=== PATIENT | male | born 1990 | race Caucasian/White ===

== ENCOUNTER 2020-02-22 11:25 | Emergency (ER) | payer SELFPAY ==
[~2020-02-22] VITALS: Ht 180.3 cm; Wt 93.0 kg
--- OUTSIDE RECORDS SUMMARY | ~2020-02-22 | XMS | Encounter Summary ---
Demographics + + + | Address | [address] | | | [place] [address] | + + + | Home Phone | | + + + | Preferred Language | Unknown | + + + | Marital Status | Single | + + + | Restorationism Affiliation | Unknown | + + + | Race | Unknown | + + + | Ethnic Group | Unknown | + + + Author + + + | Author | [facility] | | | and [place] | + + + | Organization | [facility] | | | and [place] | + + + | Address | Unknown | + + + | Phone | Unavailable | + + + Support + + + + + | Name | Relationship | Address | Phone | + + + + + | Darryl Lugo | ECON | [address] | | | | | [place], [place] | | | | | [address] | | + + + + + | Earnestine Lugo | ECON | [address] | | | | | [place], [place] | | | | | [address] | | + + + + + Care Team Providers + +------+ + | Care Installation And Repair Technician Name | Role | Phone | + +------+ + | Cory Lagunas MD | PCP | | + +------+ + Reason for Visit + + + | Reason | Comments | + + + | Medication Refill | | + + + Encounter Details +--------+--------+ + + + | Date | Type | Department | Care Team | Description | +--------+--------+ + + + | 08/03/ | Refill | [facility] | Cory Lagunas, | Medication Refill | | 2011 | | [facility] [place] | [address] | | | | | [address] | [place] | | | | | [place] | [address] | | | | | [address] | | | | | | [phone] | | | +--------+--------+ + + + Social History + +-------+ +--------+------+ | Tobacco Use | Types | Packs/Day | Years | Date | | | | | Used | | + +-------+ +--------+------+ | Never Assessed | | | | | + +-------+ +--------+------+ + + + | Sex Assigned at | Date Recorded | | | | + + + | Not on file | | + + + documented as of this encounter Miscellaneous Notes Telephone Encounter - Jennie Hernandez RN - 08/03/2012 5:14 PM PSTLast seen 03/15/2012 Needs to be seen before refill documented in this encounter Plan of Treatment Not on filedocumented as of this encounter Visit Diagnoses Not on filedocumented in this encounter"
--- OUTSIDE RECORDS SUMMARY | ~2020-02-22 | XMS | Encounter Summary ---
Demographics + + + | Address | [address] | | | [place] [address] | + + + | Home Phone | | + + + | Preferred Language | Unknown | + + + | Marital Status | Single | + + + | Yarsanism Affiliation | Unknown | + + + | Race | Unknown | + + + | Ethnic Group | Unknown | + + + Author + + + | Author | [facility] | | | and [place] | + + + | Organization | [facility] | | | and [place] | + + + | Address | Unknown | + + + | Phone | Unavailable | + + + Support + + + + + | Name | Relationship | Address | Phone | + + + + + | Darryl Lugo | ECON | [address] | | | | | [place], [place] | | | | | [address] | | + + + + + | Earnestine Lugo | ECON | [address] | | | | | [place], [place] | | | | | [address] | | + + + + + Care Team Providers + +------+ + | Care Building Mechanic Name | Role | Phone | + +------+ + | Cory Lagunas MD | PCP | | + +------+ + Encounter Details +--------+---------+ + + + | Date | Type | Department | Care Team | Description | +--------+---------+ + + + | 04/05/ | Office | [facility] | Karen Pichardo PA | Ankle injury | | 2012 | Visit | [facility] [place] | [address] [facility] | (Primary Dx) | | | | [address] | [address] [place], [place] | | | | | [place] | [address] | | | | | [address] | | | | | | [phone] | | | +--------+---------+ + + + Social History + + + +--------+------+ | Tobacco Use | Types | Packs/Day | Years | Date | | | | | Used | | + + + +--------+------+ | Current Every Day | Cigarettes | | | | | Smoker | | | | | + + + +--------+------+ + + | Comments: declined | + + + + +---------+ + | Alcohol Use | Drinks/Week | oz/Week | Comments | + + +---------+ + | Yes | 8 Standard drinks | 6.7 | | | | or equivalent | | | + + +---------+ + + + + | Sex Assigned at | Date Recorded | | | | + + + | Not on file | | + + + documented as of this encounter Last Filed Vital Signs + + + + + | Vital Sign | Reading | Time Taken | Comments | + + + + + | Blood Pressure | 110/62 | 04/05/2013 2:41 PM | | | | | PDT | | + + + + + | Pulse | 55 | 04/05/2013 2:41 PM | | | | | PDT | | + + + + + | Temperature | 37.1 C (98.8 F) | 04/05/2013 2:41 PM | | | | | PDT | | + + + + + | Respiratory Rate | 16 | 04/05/2013 2:41 PM | | | | | PDT | | + + + + + | Oxygen Saturation | 98% | 04/05/2013 2:41 PM | | | | | PDT | | + + + + + | Inhaled Oxygen | - | - | | | Concentration | | | | + + + + + | Weight | 93.9 kg (207 lb) | 04/05/2013 2:41 PM | | | | | PDT | | + + + + + | Height | - | - | | + + + + + | Body Mass Index | 29.7 | 12/12/2012 9:56 AM | | | | | PDT | | + + + + + documented in this encounter Progress Notes Karen Pichardo - 04/08/2013 9:47 AM PDT Subjective: Patient ID: Samuel Lugo is a 23 y.o. male. HPI: This 23 yr old male presents today for a new acute injury to his right ankle. He state s he has sprained this ankle several times, but this time there is a lot more swelling, brui sing, and it is very painful. He denies any previous fractures to the right ankle or fibula . He denies any loss of sensation or strength in his right ankle. He is able to put pressur e on it and walk on but it is painful. He has been wearing an debbie bandage wrap to help with the swelling and he did ice it initially. He has not been keeping foot elevated or staying off of it. Patient's medications, allergies, past medical, surgical, social and family histories were reviewed and updated as appropriate. Review of Systems: Positive systems and pertinent negatives reviewed in HPI; all other syst ems negative. Objective: Physical Exam Musculoskeletal: Right ankle: He exhibits decreased range of motion, swelling and ecchymosis. He exhibi ts no deformity, no laceration and normal pulse. tenderness. AITFL and proximal fibula tende rness found. No lateral malleolus, no medial malleolus, no CF ligament, no posterior TFL and no head of 5th metatarsal tenderness found. DP pulse 2+/5, PT pulse 2+/5 Assessment: Right ankle injury Plan: Xray ordered which shows no fracture of ankle or tibia. Referral for physical therapy put in today. Patient declined use of crutches. Instructed to keep foot up as much as possible and to keep wrapped with debbie bandage. Return to clinic if pain worsens or does not improve. I offered referral to physical therapy but patient declined today. Patient will use Tylenol for pain. documented in this encounte r Plan of Treatment Not on filedocumented as of this encounter Results XR Ankle Right 3 + Vw (04/05/2013 4:50 PM PDT) + + | Specimen | + + | | + + + + + | Narrative | Performed At | + + + | [facility] | [place] | | Department [address] [facility] | [facility] | | [ rep [address]] [ rep [facility] | | st zip] Signed | - IMAGING | | | | | Patient Name: BRITTNEYSAMUEL MILLS Physician: | | | OLIVER. : 1990 Age: 23 Sex: M Unit #: [id number] | | | Exam Date: 04/05/13 [place] [facility] [place] | | Report #: [id number] Page: | | | %(RAD)RES..mtdd.print.filter("pg") of %(RAD) | | | RES..mtdd.print.filter("tpg") | | | | | | Accession Number: [id number] | | | [id number] RIGHT ANKLE X-RAY CLINICAL HISTORY: | | | INJURY. COMPARISON: None. FINDINGS: Three | | | views of the right ankle were obtained. There is normal bone | | | mineralization. No acute osseous abnormalities are visualized. There | | | are no significant degenerative changes. Small bone islands are | | | noted in the distal tibial shaft and in the posterior calcaneus. There | | | is significant soft tissue swelling over the distal fibula. | | | IMPRESSION: NO EVIDENCE FOR ACUTE FRACTURE OR DISLOCATION. | | | SIGNIFICANT SOFT TISSUE SWELLING OVER DISTAL FIBULA. | | | Dictated Date/Time: 04/05/2013 16:50 Transcribed Date/Time: | | | 04/05/2013 18:28 Nuclear Physician: | | | <<Signature on File>> | | | Ford | | | MD Matty04/06/13 0117 <Electronically signed by Ford Starr MD> | | | Ford Starr MD 04/05/13 3039 Nuclear Physician: Jass | | | [id number]/16/13 1828 Karen Pichardo | | + + + + + + + + | Performing | Address | City/State/Zipcode | Phone Number | | Organization | | | | + + + + + | [facility] | [address] | [place] | [phone] | | [facility] | | [address] | | | - IMAGING | | | | + + + + + documented in this encounter Visit Diagnoses + + | Diagnosis | + + | Ankle injury - Primary Injury, other and unspecified, knee, leg, ankle, and foot | + + documented in this encounter
--- OUTSIDE RECORDS SUMMARY | ~2020-02-22 | XMS | Encounter Summary ---
Demographics + + + | Address | [address] | | | [place] [address] | + + + | Home Phone | | + + + | Preferred Language | Unknown | + + + | Marital Status | Single | + + + | Uatsdin Affiliation | Unknown | + + + | Race | Unknown | + + + | Ethnic Group | Unknown | + + + Author + + + | Author | [facility] | | | and [place] | + + + | Organization | [facility] | | | and [place] | + + + | Address | Unknown | + + + | Phone | Unavailable | + + + Support + + + + + | Name | Relationship | Address | Phone | + + + + + | Darryl Isaac | ECON | [address] | | | | | [place], [place] | | | | | [address] | | + + + + + | Earnestine Isaac | ECON | [address] | | | | | [place], [place] | | | | | [address] | | + + + + + Care Team Providers + +------+ + | Care Quality Assurance Monitor Final Name | Role | Phone | + +------+ + | Cory Lagunas MD | PCP | | + +------+ + Encounter Details +--------+ + + + + | Date | Type | Department | Care Team | Description | +--------+ + + + + | 04/05/ | Hospital | [facility] | Karen Pichardo PA | Ankle injury | | 2012 | Encounter | MED CTR XRAY [address] | [address] [place] | | | | | [place] | [address] [place], [place] | | | | | [place] [address] | [address] | | | | | [phone] | | | +--------+ + + + + Social History + + [...] + + documented as of this encounter Plan of Treatment Not on filedocumented as of this encounter Procedures + +--------+ + + + | Procedure Name | Priori | Date/Time | Associated Diagnosis | Comments | | | ty | | | | + +--------+ + + + | XR ANKLE RIGHT 3 + | Routin | 04/05/2013 | Ankle injury | Results for this | | VW | e | 4:50 PM | | procedure are in the | | | | PDT | | results section. | + +--------+ + + + documented in this encounter Results XR Ankle Right 3 + Vw (04/05/2013 4:50 PM PDT) + + | Specimen | + + | | + + + + + | Narrative | Performed At | + + + | [facility] | [place] | | Department [address] [place] | [facility] | | [ rep [address]] [ rep [facility] | | st zip] Signed | - IMAGING | | | | | Patient Name: SAMUEL ISAAC Physician: | | | OLIVER. : 1990 Age: 23 Sex: M Unit #: [id number] | | | Exam Date: 04/05/13 [place] [facility] [place] | | Report #: [id number] Page: | | | %(RAD)RES..mtdd.print.filter("pg") of %(RAD) | | | RES..mtdd.print.filter("tpg") | | | | | | Accession Number: [id number] | | | [id number] RIGHT ANKLE X-RAY CLINICAL HISTORY: | | [...] Transcribed Date/Time: | | | 04/05/2013 18:28 Podiatric Medicine Professor: | | | <<Signature on File>> | | | Ford | | | MD Matty04/06/13 0117 <Electronically signed by Ford Starr MD> | | | Ford Starr MD 04/05/13 4050 Podiatric Medicine Professor: Jass | | | Efalpfldiwhhg04/16/13 1828 Karen Pichardo | | + + + + + + + + | Performing | Address | City/State/Zipcode | Phone Number | | Organization | | | | + + + + + | [facility] | [address] | [place] | [phone] | | [facility] | | [address] | | | - IMAGING | | | | + + + + + documented in this encounter Visit Diagnoses + + | Diagnosis | + + | Ankle injury Injury, other and unspecified, knee, leg, ankle, and foot | + + documented in this encounter
--- OUTSIDE RECORDS SUMMARY | ~2020-02-22 | XMS | Encounter Summary ---
Demographics + + + | Address | [address] | | | [place] [address] | + + + | Home Phone | | + + + | Preferred Language | Unknown | + + + | Marital Status | Single | + + + | Hoahaoism Affiliation | Unknown | + + + | Race | Unknown | + + + | Ethnic Group | Unknown | + + + Author + + + | Author | [facility] | | | and [place] | + + + | Organization | [facility] | | | and [place] | + + + | Address | Unknown | + + + | Phone | Unavailable | + + + Support + + + + + | Name | Relationship | Address | Phone | + + + + + | Darryl Lugo | ECON | [address] | | | | | [place], [place] | | | | | [address] | | + + + + + | Earnestine Lugo | ECON | [address] | | | | | [place], [place] | | | | | [address] | | + + + + + Care Team Providers + +------+ + | Care Electrical Assistant Name | Role | Phone | + +------+ + | Cory Lagunas MD | PCP | | + +------+ + Reason for Visit +--------+--------+ + | Reason | Onset | Comments | | | Date | | +--------+--------+ + | Other | 01/11/ | | | | 2012 | | +--------+--------+ + Encounter Details +--------+ + + + + | Date | Type | Department | Care Team | Description | +--------+ + + + + | 01/11/ | Telephone | [facility] | Sam Woods, | Other | | 2012 | | SURGERY [address] | [address], | | | | | [place], [place] | [place] [address] [place], | | | | | [address] | [place] [address] | | | | | [phone] | [phone] | | | | | | | | +--------+ + + + [...] this encounter Miscellaneous Notes Telephone Encounter - Linda Ruvalcaba RN - 01/11/2013 10:48 AM PDTWork release sent and pat ient notified. elephone Encounter - Laura Woods - 01/11/2013 8:59 AM PDTNeeding a release to work. Patient is already working but they need it in writing that he has been released to return to work. H e states that they should accept a note signed by a nurse. Please call him @ [phone]. He would like to know if we can do this before Dr. Woods gets back or if he will need to w ait. If we can do this please fax the note to his work Attn: Henrietta, .Electr onically signed by Laura Woods at 01/11/2013 9:08 AM PDTdocumented in this encounter Plan of Treatment Not on filedocumented as of this encounter Visit Diagnoses Not on filedocumented in this encounter"
--- OUTSIDE RECORDS SUMMARY | ~2020-02-22 | XMS | Encounter Summary ---
Demographics + + + | Address | [address] | | | [place] [address] | + + + | Home Phone | | + + + | Preferred Language | Unknown | + + + | Marital Status | Single | + + + | Yazidism Affiliation | Unknown | + + + | Race | Unknown | + + + | Ethnic Group | Unknown | + + + Author + + + | Author | [facility] | | | and [place] | + + + | Organization | [facility] | | | and [place] | + + + | Address | Unknown | + + + | Phone | Unavailable | + + + Support + + + + + | Name | Relationship | Address | Phone | + + + + + | Darryl Isaac | ECON | [address] | | | | | [place], [place] | | | | | [address] | | + + + + + | Earnestine Isaac | ECON | [address] | | | | | [place], [place] | | | | | [address] | | + + + + + Care Team Providers + +------+ + | Care Customer Business Manager Name | Role | Phone | + +------+ + | Cory Lagunas MD | PCP | | + +------+ + Encounter Details +--------+ + + + + | Date | Type | Department | Care Team | Description | +--------+ + + + + | 12/18/ | Hospital | [facility] | Sam Woods, | | | 2012 | Encounter | MED CTR [facility] INTRA OP | MD [address], | | | | | [address] | [address] [address] [place], | | | | | [place], [place] | [place] [address] | | | | | [address] | [phone] | | | | | [phone] | | | +--------+ + + + [...] + + documented as of this encounter Medications at Time of Discharge + + + +---------+ + + | Medication | Sig | Dispensed | Refills | Start | End Date | | | | | | Date | | + + + +---------+ + + | albuterol (PROAIR | Inhale 2 puffs into | 1 | 2 | 06/14/20 | | | HFA) 90 mcg/puff | the lungs every 4 | Inhaler | | 12 | 3 | | inhaler | hours as needed | | | | | | | (cough). | | | | | + + + +---------+ + + | melatonin ([facility] | 5 tablets by mouth | | 0 | 09/15/19 | | | MELATONIN) 3 mg TABS | at bedtime as needed | | | 12 | 3 | + + + +---------+ + + | minocycline | Take 100 mg by mouth | | 0 | 05/04/20 | | | (DYNACIN) 100 MG | 2 times daily. | | | 12 | 3 | | tablet | | | | | | + + + +---------+ + + documented as of this encounter Miscellaneous Notes Op Note - Sam Woods MD - 12/18/2012 11:43 [place] [address] Patient Name: SAMUEL ISAAC Provider: Sam Woods MD Unit #: [id number] Location: [facility] #: [id number] : 1990 DATE: 12/18/2012 OPERATIVE REPORT PREOPERATIVE DIAGNOSIS Umbilical hernia, symptomatic. POSTOPERATIVE DIAGNOSIS UMBILICAL HERNIA, SYMPTOMATIC. PROCEDURE PERFORMED: Umbilical hernia repair without mesh. SURGEON: Sam Woods MD. ANESTHESIA: General endotracheal by Edwar Mckeon MD. ESTIMATED BLOOD LOSS: 0. COUNTS: Sponge and needle counts were correct at the end of the case. PROCEDURE: The patient was prepped and draped in standard sterile fashion in the supine po sition with exposure of the abdomen in the field. After adequate general endotracheal anest hesia had been achieved , the patient received 2 g of IV Ancef, had SCDs placed, and a time -out was taken to confirm site and procedure. A periumbilical local anesthetic was infused. A semicircumferential periumbilical incision was made with a 15 blade. Dissection was morales ied out through the subcutaneous tissues. The umbilicus was unattached from the underlying fascia and this allowed for inspection of an 8 mm hernia defect. The contents were dunked b ack into the abdominal cavity. I freshened up the edges of the hernia and then used 2-0 Pro shereen interrupted horizontal mattress sutures to close the defect primarily. We then reattac hed the umbilicus with a 3-0 Vicryl stitch to the fascia underneath and closed the skin with a 4 -0 Vicryl running subcuticular stitch. Steri-Strips were applied, a 2 x 2 and a Tegade rm, and the patient was woken up and brought to the recovery room, having tolerated the pro cedure well in stable condition. DICTATED BY: Sam Woods MD General Surgery JOB #: [id number] EXT JOB #:[id number] cc: Cory Lagunas MD <<Signature on File>> Sam Woods MD 12/19/12 0736 < documented in this encounter Plan of Treatment Not on filedocumented as of this encounter Visit Diagnoses Not on filedocumented in this encounter"
--- OUTSIDE RECORDS SUMMARY | ~2020-02-22 | XMS | Encounter Summary ---
Demographics + + + | Address | [address] | | | [place] [address] | + + + | Home Phone | | + + + | Preferred Language | Unknown | + + + | Marital Status | Single | + + + | Rastafari Affiliation | Unknown | + + + | Race | Unknown | + + + | Ethnic Group | Unknown | + + + Author + + + | Author | [facility] | | | and [place] | + + + | Organization | [facility] | | | and [place] | + + + | Address | Unknown | + + + | Phone | Unavailable | + + + Support + + + + + | Name | Relationship | Address | Phone | + + + + + | Darryl Lugo | ECON | [address] | | | | | [place], [place] | | | | | [address] | | + + + + + | Earnestnie Lugo | ECON | [address] | | | | | [place], [place] | | | | | [address] | | + + + + + Care Team Providers + +------+ + | Care Esthetic Dermatologist Name | Role | Phone | + +------+ + | Cory Lagunas MD | PCP | | + +------+ + Reason for Visit + +--------+ + | Reason | Onset | Comments | | | Date | | + +--------+ + | Medication Refill | 06/14/ | | | | 2011 | | + +--------+ + Encounter Details +--------+--------+ + + + | Date | Type | Department | Care Team | Description | +--------+--------+ + + + | 06/14/ | Refill | [facility] | Cory Lagunas, | Medication Refill | | 2011 | | [facility] [place] | [address] | | | | | [address] | [place] | | | | | [place] | [address] | | | | | [address] | | | | | | [phone] | | | +--------+--------+ + + + [...] this encounter Miscellaneous Notes Telephone Encounter - Eleni Bunch RN - 06/14/2012 5:11 PM PDTRefilled electronica lly. elephone [facility] - Cory Lagunas MD - 06/14/2012 4:02 PM PDTOk to refill one. If he needs more then he needs to be seen. ele phone Encounter - Eleni Bunch RN - 06/14/2012 3:54 PM PDTReceived refill request f rom [facility] [place] for Proair HFA 2 puffs every 4 hours as needed for cough #9 gm Last filled 06/01/[address] Lito Montes De Oca in [place] Not previously filled by Dr Lagnuas. Is it ok to refill this medication? documented in thi s encounter Plan of Treatment Not on filedocumented as of this encounter Visit Diagnoses Not on filedocumented in this encounter"
--- OUTSIDE RECORDS SUMMARY | ~2020-02-22 | XMS | Encounter Summary ---
Demographics + + + | Address | [address] | | | [place] [address] | + + + | Home Phone | | + + + | Preferred Language | Unknown | + + + | Marital Status | Single | + + + | Baptist Affiliation | Unknown | + + + | Race | Unknown | + + + | Ethnic Group | Unknown | + + + Author + + + | Author | [facility] | | | and [place] | + + + | Organization | [facility] | | | and [place] | + + + | Address | Unknown | + + + | Phone | Unavailable | + + + Support + + + + + | Name | Relationship | Address | Phone | + + + + + | Darryl Lugo | ECON | [address] | | | | | [place], [place] | | | | | [address] | | + + + + + | Earnestine Lugo | ECON | [address] | | | | | [place], [place] | | | | | [address] | | + + + + + Care Team Providers + +------+ + | Care Healthcare Project Manager Name | Role | Phone | + +------+ + | Cory Lagunas MD | PCP | | + +------+ + Encounter Details +--------+ + + + + | Date | Type | Department | Care Team | Description | +--------+ + + + + | 05/03/ | Abstract | [place] [facility] | [facility] | | | 2011 | | Conversion Location | SR | | | | | [address] [facility] | | | | | | [place], [place] | | | | | | [address] | | | | | | [phone] | | | +--------+ + + + + Social History + +-------+ [...] + + + | Blood Pressure | 118/62 | 03/15/2012 12:00 AM | | | | | PDT | | + + + + + | Pulse | - | - | | + + + + + | Temperature | - | - | | + + + + + | Respiratory Rate | - | - | | + + + + + | Oxygen Saturation | - | - | | + + + + + | Inhaled Oxygen | - | - | | | Concentration | | | | + + + + + | Weight | 98.9 kg (218 lb) | 03/15/2012 12:00 AM | | | | | PDT | | + + + + + | Height | 177.8 cm (5' 10") | 06/28/2011 12:00 AM | | | | | PST | | + + + + + | Body Mass Index | 31.28 | 06/28/2011 12:00 AM | | | | | PST | | + + + + + documented in this encounter Plan of Treatment Not on filedocumented as of this encounter Visit Diagnoses Not on filedocumented in this encounter
--- OUTSIDE RECORDS SUMMARY | ~2020-02-22 | XMS | Encounter Summary ---
Demographics + + + | Address | [address] | | | [place] [address] | + + + | Home Phone | | + + + | Preferred Language | Unknown | + + + | Marital Status | Single | + + + | Jew Affiliation | Unknown | + + + | Race | Unknown | + + + | Ethnic Group | Unknown | + + + Author + + + | Author | [facility] | | | and [place] | + + + | Organization | [facility] | | | and [place] | + + + | Address | Unknown | + + + | Phone | Unavailable | + + + Support + + + + + | Name | Relationship | Address | Phone | + + + + + | Darryl Lugo | ECON | [address] | | | | | [place], [place] | | | | | [address] | | + + + + + | Earnestine Lugo | ECON | [address] | | | | | [place], [place] | | | | | [address] | | + + + + + Care Team Providers + +------+ + | Care Flame Channeler Name | Role | Phone | + +------+ + | Cory Lagunas MD | PCP | | + +------+ + Reason for Visit +--------+ + | Reason | Comments | +--------+ + | Biopsy | excision | +--------+ + Encounter Details +--------+---------+ + + + | Date | Type | Department | Care Team | Description | +--------+---------+ + + + | 10/14/ | Office | [facility] | Cory Lagunas, | Lipoma of torso | | 2016 | Visit | [facility]IC[facility] [place] | [address] | (Primary Dx) | | | | [address] | [place] | | | | | [place] | [address] | | | | | [address] | | | | | | [phone] | | | +--------+---------+ + + + Social History + + + +--------+ + | Tobacco Use | Types | Packs/Day | Years | Date | | | | | Used | | + + + +--------+ + | Former Smoker | Cigarettes | | | Quit: 10/19/2013 | + + + +--------+ + + + | Comments: declined | + + + + +---------+ + | Alcohol Use | Drinks/Week | oz/Week | Comments | + + +---------+ + | Yes | 8 Standard drinks | 8.0 | | | | or equivalent | [...] + + + | Blood Pressure | 120/72 | 10/14/2015 2:13 PM | | | | | PST | | + + + + + | Pulse | 66 | 10/14/2015 2:13 PM | | | | | PST | | + + + + + | Temperature | 36.8 C (98.2 F) | 10/14/2015 2:13 PM | | | | | PST | | + + + + + | Respiratory Rate | 16 | 10/14/2015 2:13 PM | | | | | PST | | + + + + + | Oxygen Saturation | 99% | 10/14/2015 2:13 PM | | | | | PST | | + + + + + | Inhaled Oxygen | - | - | | | Concentration | | | | + + + + + | Weight | 90.3 kg (199 lb) | 10/14/2015 2:13 PM | | | | | PST | | + + + + + | Height | 177.2 cm (5' 9.75") | 10/14/2015 2:13 PM | | | | | PST | | + + + + + | Body Mass Index | 28.76 | 10/14/2015 2:13 PM | | | | | PST | | + + + + + documented in this encounter Progress Notes Cory Lagunas MD - 10/14/2015 2:15 PM PSTExcisional Biopsy Procedure Note Pre-operative Diagnosis: Lipoma v sebaceous cyst Post-operative Diagnosis: lipoma Locations: Mid-thoracic back directly over spine Indications: pain with sitting Anesthesia: Lidocaine 1% with epinephrine with added sodium bicarbonate Procedure Details The risks, benefits, indications, potential complications, and alternatives were explained to the patient and informed consent obtained. The lesion and surrounding area was given a sterile prep using betadyne and draped in the u sual sterile fashion. A scalpel was used to excise an elliptical area of skin approximately 2cm by 1cm. The scar tissue directly below the surface was dissected out of the way. In the deep subcutaneous a 2-3 encapsulated lipoma was located and poped out of the incision with j ust slight pressure.The wound was closed with 3-0 Prolene using simple interrupted stitches but ensuring that the stitch contained deep tissue to close up the deficit. . Antibiotic oin tment and a sterile dressing applied. The specimen was sent for pathologic examination. The patient tolerated the procedure well. EBL: 2-3 cc Findings: classic scarring of the subcutaneous tissue of the back and a classic lipoma Condition: Stable Complications: None Plan: 1. Instructed to keep the wound dry and covered for 24-48 hours and clean thereafter. 2. Warning signs of infection were reviewed. 3. Recommended that the patient use OTC analgesics as needed for pain. 4. Return for suture removal in 10 days. Cory Lagunas MD documented in this en counter Plan of Treatment + + +--------+ + + | Name | Type | Priori | Associated Diagnoses | Order Schedule | | | | ty | | | + + +--------+ + + | Surgical Pathology | Pathology | Routin | Lipoma of torso | Ordered: 10/14/2015 | | Exam | and | e | | | | | Cytology | | | | + + +--------+ + + documented as of this encounter Procedures + +--------+ + + + | Procedure Name | Priori | Date/Time | Associated Diagnosis | Comments | | | ty | | | | + +--------+ + + + | SURGICAL PATHOLOGY | Routin | 10/14/2015 | | Results for this | | EXAM | e | 12:00 AM | | procedure are in the | | | | PST | | results section. | + +--------+ + + + documented in this encounter Results Surgical Pathology Exam (10/14/2015 12:00 AM PST) + + | Specimen | + + | | + + + + + | Narrative | Performed At | + + + | SPECIMEN(S): A LIPOMA ON BACK SPECIMEN SOURCE: A. LIPOMA ON | [facility] | | BACK CLINICAL HISTORY: D17.1 (benign lipomatous neoplasm of skin | [facility] | | and subcutaneous tissue of trunk) FINAL PATHOLOGIC DIAGNOSIS: | | | Lipoma on back: - Benign histologic features consistent with | | | lipoma. JVR:[facility]:C2NR GROSS DESCRIPTION: The specimen is | | | labeled "Jr Lugo". Submitted in formalin are two fragments of | | | adipose tissue, one is smooth, lobulated, delicately encapsulated and | | | oval-shaped measuring 2.8 cm in maximum dimension. The other is a | | | fragment of unremarkable appearing adipose tissue measuring 2 cm in | | | diameter; surmounting it is a 1 x 0.3 cm ellipse of skin. The 2 cm | | | nodule is inked blue. Both specimens are bisected with | | | school admissions representative sections submitted in one cassette. J[facility] | | | MICROSCOPIC EXAMINATION: Histologic sections of all submitted blocks | | | are examined by light microscopy. These findings, together with the | | | gross examination, support the pathologic diagnosis. PERFORMING | | | LABORATORY: Tissue processing and slide preparation were performed by | | | [facility], [address] [place] [address], [address], [place] [address] | | | (Service Parts Driver: August English M.D.; CLIA#: [id number]). | | | Professional interpretation was performed by [facility], | | | [facility], [address] [place] [address] | | | [place] [address] (Service Parts Driver: August English M.D.; CLIA#: | | | [id number]). Diagnostician: August English MD Pathologist | | | Electronically Signed 10/16/2015 | | + + + + +---------+ + + | Performing | Address | City/State/Zipcode | Phone Number | | Organization | | | | + +---------+ + + | [facility] | | | | | [facility] | | | | + +---------+ + + documented in this encounter Visit Diagnoses + + | Diagnosis | + + | Lipoma of torso - Primary | + + documented in this encounter
--- OUTSIDE RECORDS SUMMARY | ~2020-02-22 | XMS | Encounter Summary ---
Demographics + + + | Address | [address] | | | [place] [address] | + + + | Home Phone | | + + + | Preferred Language | Unknown | + + + | Marital Status | Single | + + + | Sikh Affiliation | Unknown | + + + | Race | Unknown | + + + | Ethnic Group | Unknown | + + + Author + + + | Author | [facility] | | | and [place] | + + + | Organization | [facility] | | | and [place] | + + + | Address | Unknown | + + + | Phone | Unavailable | + + + Support + + + + + | Name | Relationship | Address | Phone | + + + + + | Darryl Lugo | ECON | [address] | | | | | [place], [place] | | | | | [address] | | + + + + + | Earnestine Lugo | ECON | [address] | | | | | [place], [place] | | | | | [address] | | + + + + + Care Team Providers + +------+ + | Care Cat Sitter Name | Role | Phone | + +------+ + | Cory Lagunas MD | PCP | | + +------+ + Reason for Referral Surgical (Routine) +--------+ + + + + + | Status | Reason | Specialty | Diagnoses / | Referred By | Referred To | | | | | Procedures | Contact | Contact | +--------+ + + + + + | Closed | Specialty | Surgery / | Diagnoses | Woods, | Woods, | | | Services | General | Umbilical | Sam Rivera MD | Sam Rivera MD | | | Required | Surgery | hernia | [address] | | | | | Procedures | [place]AR, [place] | POPLAR, [place] | | | | | REPAIR | [address] [place] [address] [place] | | | | | UMBILICAL | [place], [place] | [place] | | | | | NANY,<5Y/O,R | [address] | [address] Phone: | | | | | EDUC | Phone: | [phone] | | | | | | [phone] | Fax: | | | | | | Fax: | [phone] | | | | | | [phone] | | +--------+ + + + + + Reason for Visit + + + | Reason | Comments | + + + | New Patient | | + + + Surgical (Routine) +--------+ + + + + + | Status | Reason | Specialty | Diagnoses / | Referred By | Referred To | | | | | Procedures | Contact | Contact | +--------+ + + + + + | Closed | Specialty | Surgery / | Diagnoses | Marino, | Peggy, | | | Services | General | Hernia | REHANA John | Sam Rivera MD | | | Required | Surgery | | [address] | [address] | | [address] | [place] | | | | | | [place], | [address] [place] | | | | | | [place] [address] | [facility] [place] | | | | | | Phone: | [phone] Phone: | | | | | | [phone] | [phone] | | | | | | Fax: | Fax: | | | | | | [phone] | [phone] | +--------+ + + + + + Encounter Details +--------+---------+ + + + | Date | Type | Department | Care Team | Description | +--------+---------+ + + + | 12/12/ | Office | [facility] | Sam Woods, | Umbilical hernia | | 2012 | Visit | SURGERY [address] | [address], | (Primary Dx) | | | | [address] [place], [place] | [place] [address] [place], | | | | | [address] | [place] [address] | | | | | [phone] | [phone] | | | | | | | | +--------+---------+ + + + [...] + + + | Blood Pressure | 112/72 | 12/12/2012 9:56 AM | | | | | PDT | | + + + + + | Pulse | 50 | 12/12/2012 9:56 AM | | | | | PDT | | + + + + + | Temperature | 35.8 C (96.4 F) | 12/12/2012 9:56 AM | | | | | PDT | | + + + + + | Respiratory Rate | 15 | 12/12/2012 9:56 AM | | | | | PDT | | + + + + + | Oxygen Saturation | 99% | 12/12/2012 9:56 AM | | | | | PDT | | + + + + + | Inhaled Oxygen | - | - | | | Concentration | | | | + + + + + | Weight | 101.6 kg (224 lb) | 12/12/2012 9:56 AM | | | | | PDT | | + + + + + | Height | 177.8 cm (5' 10") | 12/12/2012 9:56 AM | | | | | PDT | | + + + + + | Body Mass Index | 32.14 | 12/12/2012 9:56 AM | | | | | PDT | | + + + + + documented in this encounter Progress Notes Sam Woods MD - 12/12/2012 9:53 AM PDTFormatting of this note might be different fr om the original. Subjective: He is a patient of Cory Lagunas MD here today for evaluation of umbilical hernia. HPI This patient was sent to see me for umbilical pain and was thought to be a symptomatic umbi lical hernia. 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 He notes when he bends over that he has discomfort at his Matchbook. He has never noticed a large bulge. He denies chronic constipation, difficulty with urination or chronic cough. Past Medical History He has a past medical history of Attention deficit disorder with hyperactivity; Sleep disor pat; Pneumonia; and Inguinal hernia. Past Surgical History He has past surgical history that includes Tonsillectomy and tonselectomy (1996). Family History: His family history includes Allergies in an unspecified family member; Cancer in an unspeci fied family member; Diabetes in an unspecified family member; Hearing loss in an unspecified family member; Heart disease in an unspecified family member; Mental illness in an unspecif ied family member; and Other (See Comment) in an unspecified family member. Social History: He reports that he has been smoking Cigarettes. He does not have any smokeless tobacco his tory on file. He reports that he drinks about 4 ounces of alcohol per week. He reports that he does not use illicit drugs. No Known Allergies Medications: Outpatient Encounter Prescriptions as of 12/12/2012 Medication Sig Dispense Refill melatonin ([facility] MELATONIN) 3 mg TABS 5 tablets by mouth at bedtime as needed minocycline (DYNACIN) 100 MG tablet Take 100 mg by mouth 2 times daily. albuterol (PROAIR HFA) 90 mcg/puff inhaler Inhale 2 puffs into the lungs every 4 hours as needed (cough). 1 Inhaler 2 DISCONTD: methylphenidate (CONCERTA) 36 MG CR tablet take two tablets once a day Review of Systems Constitutional: Negative. HENT: Negative. Eyes: Negative. Respiratory: Negative. Cardiovascular: Negative. Gastrointestinal: Positive for abdominal pain and constipation. Genitourinary: Negative. Musculoskeletal: Negative. Skin: Negative. Neurological: Negative. Hematological: Negative. Psychiatric/Behavioral: Negative. Objective: Physical ExamBP 112/72 | Pulse 50 | Temp(Src) 35.8 C (96.4 F) (Oral) | Resp 15 | Ht 1.7 78 m (5' 10") | Wt 101.606 kg (224 lb) | BMI 32.14 kg/m2 | SpO2 99% Well-developed well-nourished in no apparent distress Alert and oriented x4 HEENT her PERRLA and EOMI no scleral icterus Heart regular rate and rhythm no murmurs rubs or gallops Lungs clear to auscultation anteriorly and posteriorly Abdomen soft nondistended nontender present bowel sounds, no hepatomegaly. Umbilicus is pa lpated and a small defect is noted with a reducible hernia with a less than 1 cm orifice. Extremities without edema Assessment: Symptomatic small umbilical hernia the patient desires to have fixed. I talked with the rehana ramirez and his mother about the risks associated with an umbilical hernia repair without mesh to include but not be limited to bleeding, infection, seroma is, and recurrence rates of 5% at 5 years. The patient and his mother asked appropriate questions and I answered them to the best of my ability. Consent was obtained. Plan: Symptomatic small umbilical hernia repair next week per the patient's wishes. documented in this e ncounter Miscellaneous Notes Miscellaneous - SAMANTHA BOJORQUEZ - 01/21/2013 12:00 AM PDT documented in this encounter Plan of Treatment + + +--------+ + + | Name | Type | Priori | Associated Diagnoses | Order Schedule | | | | ty | | | + + +--------+ + + | Ambulatory referral | Outpatient | Routin | Umbilical hernia | Ordered: 12/12/2012 | | to General Surgery | Referral | e | | | + + +--------+ + + documented as of this encounter Visit Diagnoses + + | Diagnosis | + + | Umbilical hernia - Primary Umbilical hernia without mention of obstruction or | | gangrene | + + documented in this encounter
--- OUTSIDE RECORDS SUMMARY | ~2020-02-22 | XMS | Encounter Summary ---
Demographics + + + | Address | [address] | | | [place] [address] | + + + | Home Phone | | + + + | Preferred Language | Unknown | + + + | Marital Status | Single | + + + | Samaritan Affiliation | Unknown | + + + | Race | Unknown | + + + | Ethnic Group | Unknown | + + + Author + + + | Author | [facility] | | | and [place] | + + + | Organization | [facility] | | | and [place] | + + + | Address | Unknown | + + + | Phone | Unavailable | + + + Support + + + + + | Name | Relationship | Address | Phone | + + + + + | Darryl Lugo | ECON | [address] | | | | | [place], [place] | | | | | [address] | | + + + + + | Earnestine Lugo | ECON | [address] | | | | | [place], [place] | | | | | [address] | | + + + + + Care Team Providers + +------+ + | Care Durable Medical Equipment Repairer Name | Role | Phone | + +------+ + | Cory Lagunas MD | PCP | | + +------+ + Reason for Visit + +--------+ + | Reason | Onset | Comments | | | Date | | + +--------+ + | Medication Refill | 08/20/ | | | | 2011 | | + +--------+ + Encounter Details +--------+--------+ + + + | Date | Type | Department | Care Team | Description | +--------+--------+ + + + | 08/20/ | Refill | [facility] | Jennie Hernandez | Medication Refill | | 2011 | | [facility] | [place] | | | | | [address] | | | | | | [place] | | | | | | [address] | | | | | | [phone] | | | +--------+--------+ + + + [...] Telephone Encounter - Jennie Hernandez RN - 08/20/2012 4:20 PM PSTCalled patient and he states he is being seen in [facility] now and will have the inhaler filled. elephone Cory Taylor MD - 08/20/2012 1:57 PM PSTOK to refill albuterol unless there is an u nderstanding that she would address the refill with Urgent Care. elephone Encounter - Jennie Hernandez RN - 1:32 PM PSTLast seen 03/15/2012 Last filled 06/14/2012 Needs to be seen before next refill Patient made appointment for Sep 27, 2012 Going into [facility] for sore throat in [place] today. documented in this encounter Plan of Treatment Not on filedocumented as of this encounter Visit Diagnoses Not on filedocumented in this encounter"
--- OUTSIDE RECORDS SUMMARY | ~2020-02-22 | XMS | Encounter Summary ---
Demographics + + + | Address | [address] | | | [place] [address] | + + + | Home Phone | | + + + | Preferred Language | Unknown | + + + | Marital Status | Single | + + + | Buddhism Affiliation | Unknown | + + + | Race | Unknown | + + + | Ethnic Group | Unknown | + + + Author + + + | Author | [facility] | | | and [place] | + + + | Organization | [facility] | | | and [place] | + + + | Address | Unknown | + + + | Phone | Unavailable | + + + Support + + + + + | Name | Relationship | Address | Phone | + + + + + | Darryl Lugo | ECON | [address] | | | | | [place], [place] | | | | | [address] | | + + + + + | Earnestine Lugo | ECON | [address] | | | | | [place], [place] | | | | | [address] | | + + + + + Care Team Providers + +------+ + | Care Reservation Manager Name | Role | Phone | + +------+ + | Cory Lagunas MD | PCP | | + +------+ + Reason for Visit + + + | Reason | Comments | + + + | Suture / Staple | 5 sutures | | Removal | | + + + Encounter Details +--------+ + + + + | Date | Type | Department | Care Team | Description | +--------+ + + + + | 10/25/ | Clinical | [facility] | Cory Lagunas, | Visit for suture | | 2016 | Support | [facility] [place] | [address] | removal (Primary Dx) | | | | [address] | [place] | | | | | [place] | [address] | | | | | [address] | | | | | | [phone] | | | +--------+ + + + [...] + + documented as of this encounter Progress Notes Lala Wasserman Cert MA - 10/26/2015 4:54 PM PSTSuture Removal: Patient here for suture removal. He had a lipoma excised from his back 10 days ago. He had 5 sutures placed. Inc ision well healed sutures removed without incident. Wound was dressed with antibiotic ointme nt and a band aid. Patient instructed to return for signs of infection. documented in t his encounter Plan of Treatment Not on filedocumented as of this encounter Visit Diagnoses + + | Diagnosis | + + | Visit for suture removal - Primary Encounter for removal of sutures | + + documented in this encounter"
--- OUTSIDE RECORDS SUMMARY | ~2020-02-22 | XMS | Encounter Summary ---
Demographics + + + | Address | [address] | | | [place] [address] | + + + | Home Phone | | + + + | Preferred Language | Unknown | + + + | Marital Status | Single | + + + | Judaism Affiliation | Unknown | + + + | Race | Unknown | + + + | Ethnic Group | Unknown | + + + Author + + + | Author | [facility] | | | and [place] | + + + | Organization | [facility] | | | and [place] | + + + | Address | Unknown | + + + | Phone | Unavailable | + + + Support + + + + + | Name | Relationship | Address | Phone | + + + + + | Darryl Lugo | ECON | [address] | | | | | [place], [place] | | | | | [address] | | + + + + + | Earnestine Lugo | ECON | [address] | | | | | [place], [place] | | | | | [address] | | + + + + + Care Team Providers + +------+ + | Care Treatment Specialist Name | Role | Phone | + +------+ + | Cory Lagunas MD | PCP | | + +------+ + Reason for Visit +---------+ + | Reason | Comments | +---------+ + | Post Op | | +---------+ + Encounter Details +--------+---------+ + + + | Date | Type | Department | Care Team | Description | +--------+---------+ + + + | 12/26/ | Office | [facility] | Sam Woods, | Umbilical hernia | | 2013 | Visit | SURGERY [address] | [address], | (Primary Dx) | | | | [place] | [place] [address] [place], | | | | | [address] | [place] [address] | | | | | [phone] | [phone] | | | | | | | [...] + + + | Blood Pressure | 92/60 | 12/26/2012 9:15 AM | | | | | PDT | | + + + + + | Pulse | 53 | 12/26/2012 9:15 AM | | | | | PDT | | + + + + + | Temperature | 36.1 C (97 F) | 12/26/2012 9:15 AM | | | | | PDT | | + + + + + | Respiratory Rate | 16 | 12/26/2012 9:15 AM | | | | | PDT | | + + + + + | Oxygen Saturation | 100% | 12/26/2012 9:15 AM | | | | | PDT | | + + + + + | Inhaled Oxygen | - | - | | | Concentration | | | | + + + + + | Weight | 98.9 kg (218 lb) | 12/26/2012 9:15 AM | | | | | PDT | | + + + + + | Height | - | - | | + + + + + | Body Mass Index | 31.28 | 12/12/2012 9:56 AM | | | | | PDT | | + + + + + documented in this encounter Progress Notes Sam Woods MD - 12/26/2012 9:13 AM PDTFormatting of this note might be different fr om the original. Subjective: He is a patient of Cory Lagunas MD here today for post op evaluation of umbillical hernia repair without mesh performed 12/18/12. HPI This patient returns to see me after having undergone an umbilical hernia repair without m esh. The patient has no complaints currently. He is eating well and having normal bowel mo vements. Review of Systems Objective: Physical ExamBP 92/60 | Pulse 53 | Temp(Src) 36.1 C (97 F) (Oral) | Resp 16 | Wt 98.884 kg (218 lb) | SpO2 100% Intra-in the umbilicus incision is without erythema induration or discharge Assessment: Satisfactory postoperative course Plan: No further followup necessary the patient understands his lifting limitations but nothing o gildardo 20 pounds for a total of 2 weeks. documented in this e ncounter Plan of Treatment Not on filedocumented as of this encounter Visit Diagnoses + + | Diagnosis | + + | Umbilical hernia - Primary Umbilical hernia without mention of obstruction or | | gangrene | + + documented in this encounter"
--- OUTSIDE RECORDS SUMMARY | ~2020-02-22 | XMS | Clinical Summary ---
Demographics + + + | Address | [address] | | | [place] [address] | + + + | Home Phone | | + + + | Preferred Language | Unknown | + + + | Marital Status | Single | + + + | Mu-Ism Affiliation | Unknown | + + + | Race | Unknown | + + + | Ethnic Group | Unknown | + + + Author + + + | Author | [facility] | | | and [place] | + + + | Organization | [facility] | | | and [place] | + + + | Address | Unknown | + + + | Phone | Unavailable | + + + Support + + + + + | Name | Relationship | Address | Phone | + + + + + | Darryl Lugo | ECON | [address] | | | | | [place], [place] | | | | | [address] | | + + + + + | Earnestine Lugo | ECON | [address] | + | | | | [place], [place] | | | | | [address] | | + + + + + Care Team Providers + +------+ + | Care Human Services Program Specialist Name | Role | Phone | + +------+ + | Pcp, Prov Inactive | PCP | | + +------+ + Allergies No Known Allergies Medications No known medications Active Problems + + + | Problem | Noted Date | + + + | Viral URI with cough | 10/01/2015 | + + + | Umbilical hernia | 10/01/2015 | + + + | Dermoid cyst | 10/01/2015 | + + + | Post-viral cough syndrome | 09/27/2012 | + + + | Preventative health care | 09/25/2012 | + + + + + | Overview: Tdap: 06/01/2006 | + + + + + | LIPOMA | 03/15/2012 | + + + | ACNE VULGARIS, FACIAL | 06/28/2011 | + + + | DEPRESSION, MILD | 06/28/2011 | + + + | ADHD (attention deficit hyperactivity disorder) | | + + + Immunizations + + + + | Name | Administration Dates | Next Due | + + + + | DTAP, 5 DOSE (PED) | 01/03/1997, 09/27/1993, 1992, | | | | 1992, 1992 | | + + + + | HEP A, 2 DOSE | 09/30/1999 | | | (PED/ADOL) | | | + + + + | HIB (PRP-T), 4 DOSE | 06/29/1993, 1992, 1992, | | | (PED) | 1992 | | + + + + | HPV, QUADRIVALENT, 3 | 09/15/2011 | | | DOSE (ADOL/ADULT) | | | + + + + | Hep B (PED/ADOL) 3 | 1992, 1992 | | | DOSE | | | + + + + | INFLUENZA, | 08/03/2007, 06/01/2006, 06/23/2005, | | | UNSPECIFIED | 06/14/2001 | | | FORMULATION | | | + + + + | IPV, 4 DOSE | 01/03/1997, 09/27/1993, 1992, | | | (PED/ADULT) | 1992, 1992 | | + + + + | MENINGOCOCCAL | 03/24/2005 | | | CONJUGATE,MENACTRA | | | | (PED/ADOL/ADULT) | | | + + + + | MMR, 2 DOSE | 01/03/1997, 06/29/1993 | | | (PED/ADULT) | | | + + + + | TDAP, (ADOL/ADULT) | 06/01/2006, 04/29/2003 | | + + + + | VARICELLA, 2 DOSE | 06/01/2006, 07/25/1997 | | | (VARIVAX) | | | + + + + Family History + + +------+ + | Medical History | Relation | Name | Comments | + + +------+ + | Allergies | | | Nasal | + + +------+ + | Cancer | | | FAMILY HISTORY | + + +------+ + | Diabetes | | | FAMILY HISTORY | + + +------+ + | Hearing loss | | | | + + +------+ + | Heart disease | | | | + + +------+ + | Mental illness | | | | + + +------+ + | Other (see comment) | | | Thyroid problem | + + +------+ + + +------+--------+ + | Relation | Name | Status | Comments | + +------+--------+ + Social History + + + +--------+ + | Tobacco Use | Types | Packs/Day | Years | Date | | | | | Used | | + + + +--------+ + | Former Smoker | Cigarettes | | | Quit: 10/19/2013 | + + + +--------+ + + + | Tobacco Cessation: Ready to Quit: No; Counseling Given: No | | Comments: declined | + + + [...] on file | | + + + Last Filed Vital Signs + + + [...] | | + + + + + Plan of Treatment + + + + + | Health Maintenance | Due Date | Last | Comments | | | | Done | | + + + + + | Vaccine: | | 06/01/20 | | | Dtap/Tdap/Td (8 - | 6 | 06, | | | Td) | | 04/29/20 | | | | | 03, | | | | | 01/03/19 | | | | | 97, | | | | | Addition | | | | | al | | | | | history | | | | | exists | | + + + + + | Vaccine: Influenza | | 08/03/20 | | | (#1) | 0 | 07, | | | | | 06/01/20 | | | | | 06, | | | | | 06/23/20 | | | | | 05, | | | | | Addition | | | | | al | | | | | history | | | | | exists | | + + + + + Results Not on filefrom Last 3 Months Advance Directives + + + + + | Type | Date Recorded | Patient | Explanation | | | | Master At Arms | | + + + + + | Power of | | | | | Wellness Consultant | | | | + + + + + | Advance | | | | | Directive | | | | + + + + +
--- OUTSIDE RECORDS SUMMARY | ~2020-02-22 | XMS | Encounter Summary ---
Demographics + + + | Address | [address] | | | [place] [address] | + + + | Home Phone | | + + + | Preferred Language | Unknown | + + + | Marital Status | Single | + + + | Scientologist Affiliation | Unknown | + + + | Race | Unknown | + + + | Ethnic Group | Unknown | + + + Author + + + | Author | [facility] | | | and [place] | + + + | Organization | [facility] | | | and [place] [...] [place], [place] | | | | | [address] | | + + + + + | Earnestine Lugo | ECON | [address] | | | | | [place], [place] | | | | | [address] | | + + + + + Care Team Providers + +------+ + | Care Field Artillery Senior Sergeant Name | Role | Phone | + [...] Specialty | Surgery / | Diagnoses | Pichardo, | Peggy, | | | Services | General | Hernia | ИВАН John | Sam Rivera MD | | | Required | Surgery | | [address] | [address] | | | | [address] | [place] | | | | | | [place], | [address] [place] | | | | | | [place] [address] | [place] | | | | | | Phone: | [phone] Phone: | | | | | | [phone] | [phone] | | | | | | Fax: | Fax: | | | | | | [phone] | [phone] | +--------+ + + + + + Reason for Visit + + + | Reason | Comments | + + + | Abdominal Pain | | + + + Encounter Details +--------+---------+ + + + | Date | Type | Department | Care Team | Description | +--------+---------+ + + + | 12/11/ | Office | [facility] | Karen Pichardo PA | Hernia (Primary Dx) | | 2012 | Visit | [facility] [place] | [address] [facility] | | | | | [address] | [address] [place], [place] | | | | | [place] | [address] | | | | | [address] | | | | | | [phone] | | | +--------+---------+ + + + [...] + + + | Blood Pressure | 118/67 | 12/11/2012 9:32 AM | | | | | PDT | | + + + + + | Pulse | 72 | 12/11/2012 9:32 AM | | | | | PDT | | + + + + + | Temperature | 37.2 C (98.9 F) | 12/11/2012 9:32 AM | | | | | PDT | | + + + + + | Respiratory Rate | 18 | 12/11/2012 9:32 AM | | | | | PDT | | + + + + + | Oxygen Saturation | 98% | 12/11/2012 9:32 AM | | | | | PDT | | + + + + + | Inhaled Oxygen | - | - | | | Concentration | | | | + + + + + | Weight | 101.6 kg (224 lb) | 12/11/2012 9:32 AM | | | | | PDT | | + + + + + | Height | - | - | | + + + + + | Body Mass Index | 32.14 | 09/27/2012 9:38 AM | | | | | PST | | + + + + + documented in this encounter Patient Instructions Patient Instructions Karen Pichardo - 12/11/2012 9:[address] Woods for poss ible umbilical hernia v muscle strain. documented in this encounter Progress Notes Karen Pichardo - 12/11/2012 9:37 AM PDT Subjective: Patient ID: Jr Lugo is a 22 y.o. male. HPI:This 22 yr old male presents for an intermittent history of pain around the umbilicus a fter heavy lifting. He states he had an episode of this pain about 3 years ago when he was doing a lot of weight lifting. He did not notice a protrusion around the umbilicus at that time. He states the pain was sharp, but it eventually resolved on its own. One month ago, patient noticed this same pain in the umbilicus after moving and doing heav y lifting. He stated it was more painful with movement, but then became constant. He did n ot notice any masses or protrusions at that time. He did not notice any cutaneous changes a round the umbilicus. He states the pain lasted for about a week and then resolved. Today he has no pain at rest or with movement and has been pain free for about 3 weeks. He wants t o know what might be causing his pain. Review of Systems: Patient denies fever, fatigue, nausea, vomiting, diarrhea, abdominal anita n, constipation, chest pain, shortness of breath. Objective: Physical Exam Abdominal: Normal appearance and bowel sounds are normal. He exhibits no distension. There is no tenderness. There is no rigidity and no guarding. Mass noted at approximately 12'oclock, just superior to umbilicus with deep palpation. Assessment: 1.) Intermittent umbilical pain 2.) palpable umbilical mass Plan: I referred patient to Dr. Woods to rule out umbilical hernia. Appointment set up with Dr Hunter Woods tomorrow. I was not able to discern whether the mass I was feeling was muscle, sub cutaneous tissue or possible bowel. No strangulated mass noted. No imaging performed today . documented in this encounte r Plan of Treatment + + +--------+ + + | Name | Type | Priori | Associated Diagnoses | Order Schedule | | | | ty | | | + + +--------+ + + | Ambulatory referral | Outpatient | Routin | Hernia | Ordered: 12/11/2012 | | to General Surgery | Referral | e | | | + + +--------+ + + documented as of this encounter Visit Diagnoses + + | Diagnosis | + + | Hernia - Primary Hernia of unspecified site of abdominal cavity without mention of | | obstruction or gangrene | + + documented in this encounter"
--- OUTSIDE RECORDS SUMMARY | ~2020-02-22 | XMS | Encounter Summary ---
Demographics + + + | Address | [address] | | | [place] [address] | + + + | Home Phone | | + + + | Preferred Language | Unknown | + + + | Marital Status | Single | + + + | Episcopalian Affiliation | Unknown | + + + | Race | Unknown | + + + | Ethnic Group | Unknown | + + + Author + + + | Author | [facility] | | | and [place] | + + + | Organization | [facility] | | | and [...] [place], [place] | | | | | [address] | | + + + + + | Earnestine Lugo | ECON | [address] | | | | | [place], [place] | | | | | [address] | | + + + + + Care Team Providers + +------+ + | Care Milk Hauler Name | Role | Phone | + +------+ + | Cory Lagunas MD | PCP | | + +------+ + Reason for Visit +--------+ + | Reason | Comments | +--------+ + | Cough | | +--------+ + Encounter Details +--------+---------+ + + + | Date | Type | Department | Care Team | Description | +--------+---------+ + + + | 10/01/ | Office | [facility] | Cory Lagunas, | Viral URI with cough | | 2016 | Visit | [facility] [place] | [address] | (Primary Dx); | | | | [address] | [place], [place] | Umbilical hernia, | | | | [place], [place] | [address] | recurrence not | | | | [address] | | specified; Dermoid | | | | [phone] | | cyst | +--------+---------+ + + + Social History [...] + + + | Blood Pressure | 124/70 | 10/01/2015 8:13 AM | | | | | PST | | + + + + + | Pulse | 73 | 10/01/2015 8:13 AM | | | | | PST | | + + + + + | Temperature | 36.7 C (98.1 F) | 10/01/2015 8:13 AM | | | | | PST | | + + + + + | Respiratory Rate | 18 | 10/01/2015 8:13 AM | | | | | PST | | + + + + + | Oxygen Saturation | 98% | 10/01/2015 8:13 AM | | | | | PST | | + + + + + | Inhaled Oxygen | - | - | | | Concentration | | | | + + + + + | Weight | 92.4 kg (203 lb 11.2 | 10/01/2015 8:13 AM | | | | oz) | PST | | + + + + + | Height | - | - | | + + + + + | Body Mass Index | 29.23 | 12/12/2012 9:56 AM | | | | | PDT | | + + + + + documented in this encounter Patient Instructions Patient Instructions Elizabeth Dillon CMA - 10/01/2015 8:41 AM PSTGets lots of rest Stay away from sugar Drink lots of fluids Please return for procedure 8 :48 AM PST documented in this encounter Progress Notes Cory Lagunas MD - 10/01/2015 8:18 AM PSTFormatting of this note might be different fro m the original. Jr Lugo is a 25 y.o. male Chief Complaint: Cough HPI Pt reports he started with cough 4 days ago. Has sore throat, running nose, congested Has pressure in right ear. Denies fevers, vomit, diarrhea Coughing up clear sputum. Coughing is not keeping him up at night States he has a skin tag on back Bothers him when sitting and rubs on chair umbilical hernia came back Its little, denies pain PREVENTIVE CARE/PRIOR VISITS 1. Any recommendations from Health Maintenance: No Preventative Services TOPIC LAST DONE NEXT DUE Influenza Imm (Yearly) 03/21/2015 2. Any immunizations necessary: No Immunization History Administered Date(s) Administered TDAP, (ADOL/ADULT) 06/01/2006 3. Has patient been involved in medical events/hospitalizations since their last visit: No No Known Allergies Medications: Past Medical History He has a past medical history of Attention deficit disorder with hyperactivity(314.01); Sle ep disorder; Pneumonia; and Inguinal hernia. Past Surgical History He has past surgical history that includes Tonsillectomy (1996) and Umbilical hernia repair (12/18/2012). Family History: His family history includes Allergies in an other family member; Cancer in an other family member; Diabetes in an other family member; Hearing loss in an other family member; Heart di sease in an other family member; Mental illness in an other family member; Other (See Commen t) in an other family member. Social History: History Social History Marital Status: Single Spouse Name: N/A Number of Children: N/A Years of Education: N/A Social History Main Topics Smoking status: Former Smoker Types: Cigarettes Quit date: 10/19/2013 Smokeless tobacco: None Comment: declined Alcohol Use: 4.8 oz/week 8 Standard drinks or equivalent per week Drug Use: No Sexual Activity: Partners: Female Other Topics Concern None Social History Narrative Lives with mom, Earnestine and dad Darryl Not in school, needs to get a job and drivers license Review of Systems Constitutional: Negative for fever. HENT: Positive for congestion, ear pain (pressure in right ear ) and sore throat. Respiratory: Positive for cough. Gastrointestinal: Negative for nausea, vomiting and diarrhea. Objective: Filed Vitals: 10/01/15 0813 BP: 124/70 Pulse: 73 Temp: 36.7 C (98.1 F) TempSrc: Temporal Resp: 18 Weight: 92.398 kg (203 lb 11.2 oz) SpO2: 98% Physical Exam Constitutional: He is oriented to person, place, and time. He appears well-developed and we ll-nourished. No distress. Appropriately dressed and groomed HENT: Head: Normocephalic and atraumatic. Right Ear: External ear normal. A middle ear effusion ( clear ) is present. Left Ear: External ear normal. A middle ear effusion (clear ) is present. Clear effusion on both ears Uvula is little red Eyes: Conjunctivae are normal. Cardiovascular: Normal rate and normal heart sounds. No murmur heard. Pulmonary/Chest: Effort normal and breath sounds normal. He has no wheezes. Abdominal: Very small umbilical hernia Musculoskeletal: He exhibits no edema. Neurological: He is alert and oriented to person, place, and time. Skin: Skin is warm and dry. Dermoid located where red line is at. It is mobile underneath the skin. Psychiatric: He has a normal mood and affect. His behavior is normal. Nursing note and vitals reviewed. No results found for this or any previous visit. Assessment and Plans: 1. Viral URI with cough - - Rx for Cheratussin - Gets lots of rest - Stay away from sugar - Drink lots of fluids 2. Umbilical hernia, recurrence not specified - (very small) - Reassurance given. Able to continue activities 3. Dermoid cyst - - On back - Scheduled for removal due to pain and discomfort I, Elizabeth De Guzmangado am acting as a scribe on behalf of, and in the presence of Cory nice MD. Elizabeth Dillon serology teacher 10/01/15 Cory Lagunas MD documented in this en counter Plan of Treatment Not on filedocumented as of this encounter Visit Diagnoses + + | Diagnosis | + + | Viral URI with cough - Primary Acute upper respiratory infections of unspecified site | + + | Umbilical hernia, recurrence not specified | + + | Dermoid cyst Benign neoplasm of unspecified site | + + documented in this encounter"
--- OUTSIDE RECORDS SUMMARY | ~2020-02-22 | XMS | Encounter Summary ---
Demographics + + + | Address | [address] | | | [place] [address] | + + + | Home Phone | | + + + | Preferred Language | Unknown | + + + | Marital Status | Single | + + + | Denominational Affiliation | Unknown | + + + | Race | Unknown | + + + | Ethnic Group | Unknown | + + + Author + + + | Author | [facility] | | | and [place] | + + + | Organization | [facility] | | | and [place] | + + + | Address | Unknown | + + + | Phone | Unavailable | + + + Support + + + + + | Name | Relationship | Address | Phone | + + + + + | Darryl Lugo | ECON | [address] | | | | | [place], [place] | | | | | [address] | | + + + + + | Earnestine Lugo | ECON | [address] | | | | | [place], [place] | | | | | [address] | | + + + + + Care Team Providers + +------+ + | Care Fiscal Accounting Clerk Name | Role | Phone | + +------+ + | Cory Lagunas MD | PCP | | + +------+ + Reason for Visit + +--------+ + | Reason | Onset | Comments | | | Date | | + +--------+ + | Recall For Services | 04/26/ | | | (DMST) | 2016 | | + +--------+ + Encounter Details +--------+ + + + + | Date | Type | Department | Care Team | Description | +--------+ + + + + | 04/26/ | Patient | [facility] | Cory Lagunas, | Preventive Screening | | 2017 | Outreach | [facility] [place] | [address] | | | | | [address] | [place] | | | | | [place] | [address] | | | | | [address] | | | | | | [phone] | | | +--------+ + + + [...] this encounter Miscellaneous Notes Telephone Encounter - LANG AGUSTIN - 04/26/2017 9:37 AM PDTAutomated reminder call/text s ent to patient for the following due services: Lipid Screening Office Visit (blood pressure) Please inform patient of due services. Please contact Population Health Support Team at if you have any questions regarding this message. documented in this encount er Plan of Treatment Not on filedocumented as of this encounter Visit Diagnoses Not on filedocumented in this encounter"
--- OUTSIDE RECORDS SUMMARY | ~2020-02-22 | XMS | Encounter Summary ---
Demographics + + + | Address | [address] | | | [place] [address] | + + + | Home Phone | | + + + | Preferred Language | Unknown | + + + | Marital Status | Single | + + + | Religion Affiliation | Unknown | + + + | Race | Unknown | + + + | Ethnic Group | Unknown | + + + Author + + + | Author | [facility] | | | and [place] | + + + | Organization | [facility] | | | and [place] | + + + | Address | Unknown | + + + | Phone | Unavailable | + + + Support + + + + + | Name | Relationship | Address | Phone | + + + + + | Darryl Lugo | ECON | [address] | | | | | [place], [place] | | | | | [address] | | + + + + + | Earnestine Lugo | ECON | [address] | | | | | [place], [place] | | | | | [address] | | + + + + + Care Team Providers + +------+ + | Care Director Of Reimbursement Name | Role | Phone | + +------+ + | Cory Lagunas MD | PCP | | + +------+ + Reason for Visit +---------+--------+ + | Reason | Onset | Comments | | | Date | | +---------+--------+ + | Results | 04/08/ | | | | 2012 | | +---------+--------+ + Encounter Details +--------+ + + + + | Date | Type | Department | Care Team | Description | +--------+ + + + + | 04/08/ | Telephone | [facility] | Karen Pichardo PA | Results | | 2012 | | [facility] [place] | [address] [facility] | | | | | [address] | [address] [place], [place] | | | | | [place], [place] | [address] | | | | | [address] | | | | | | [phone] | | | +--------+ + + + [...] this encounter Miscellaneous Notes Telephone Encounter - Lala Wasserman - 04/08/2013 10:20 AM PDTCalled patient with normal results. Patient is not interested in physical therapy at this time he states it is much bet ter. elephone Encounter - Karen Pichardo - 04/08/2013 10:02 AM PDTPlease phone patient to let him know xray showed no sign of fracture. Please ask if he would like referral to physical therapy for his ankle spr ain and let me know. As well if pain is not improving with rest and wrapping, I would like f or him to see orthopedics, so if no improvement in one week, he needs to call so I can put i n this referral. Thanks. docu mented in this encounter Plan of Treatment Not on filedocumented as of this encounter Visit Diagnoses Not on filedocumented in this encounter"
--- OUTSIDE RECORDS SUMMARY | ~2020-02-22 | XMS | Encounter Summary ---
Demographics + + + | Address | [address] | | | [place] [address] | + + + | Home Phone | | + + + | Preferred Language | Unknown | + + + | Marital Status | Single | + + + | Pentecostalism Affiliation | Unknown | + + + | Race | Unknown | + + + | Ethnic Group | Unknown | + + + Author + + + | Author | [facility] | | | and [place]elana | + + + | Organization | [facility] | | | and [place] | + + + | Address | Unknown | + + + | Phone | Unavailable | + + + Support + + + + + | Name | Relationship | Address | Phone | + + + + + | Darryl Lugo | ECON | [address] | | | | | [place], [place] | | | | | [address] | | + + + + + | Earnestine Lugo | ECON | [address] | | | | | [place], [place] | | | | | [address] | | + + + + + Care Team Providers + +------+ + | Care Draw Bench Operator Name | Role | Phone | + +------+ + | Cory Lagunas MD | PCP | | + +------+ + Reason for Visit +--------+ + | Reason | Comments | +--------+ + | ADHD | follow up | +--------+ + Encounter Details +--------+---------+ + + + | Date | Type | Department | Care Team | Description | +--------+---------+ + + + | 09/27/ | Office | [facility] | Cory Lagunas, | ADHD (attention | | 2012 | Visit | [facility] | [address] | deficit | | | | [address] | [place] | hyperactivity | | | | [place] | [address] | disorder) (Primary | | | | [phone] | | Dx); Post-viral | | | | [phone] | | cough syndrome | +--------+---------+ + + + Social History + + + +--------+------+ | Tobacco Use | Types | Packs/Day | Years | Date | | | | | Used | | + + + +--------+------+ | Current Every Day | Cigarettes | | | | | Smoker | | | | | + + + +--------+------+ + + | Tobacco Cessation: Ready to [...] + + + | Blood Pressure | 118/60 | 09/27/2012 9:38 AM | | | | | PST | | + + + + + | Pulse | 84 | 09/27/2012 9:38 AM | | | | | PST | | + + + + + | Temperature | 37.1 C (98.8 F) | 09/27/2012 9:38 AM | | | | | PST | | + + + + + | Respiratory Rate | 20 | 09/27/2012 9:38 AM | | | | | PST | | + + + + + | Oxygen Saturation | - | - | | + + + + + | Inhaled Oxygen | - | - | | | Concentration | | | | + + + + + | Weight | 100.5 kg (221 lb 8 | 09/27/2012 9:38 AM | | | | oz) | PST | | + + + + + | Height | 177.8 cm (5' 10") | 09/27/2012 9:38 AM | | | | | PST | | + + + + + | Body Mass Index | 31.78 | 09/27/2012 9:38 AM | | | | | PST | | + + + + + documented in this encounter Progress Notes Cory Lagunas MD - 09/27/2012 10:16 AM PSTFormatting of this note might be different fro m the original. Subjective: Jr Lugo is a 22 y.o. male patient of Cory Lagunas. Chief Complaint: ADHD The patient reports that he would like to discontinue his Concerta. Patient reports that [place] was initially thinking about joining the . He is unsure whether this is the route that he wants to go now. He currently is working at a local [employer]. 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 So far he reports that he has not had any work issues since stopping the Concerta. He is wondering if he can stay off of this medicat ion. His attended today with his mother. She remained relatively quiet throughout the appo intment. She reports that occasionally he does have moments of disorganized behavior. He reports that he had a viral illness/cold in July. He was seen in urgent care [facility] the cough when on for about a month. He was given albuterol which was helpful at that nori e. Has not needed it very much recently. He has no history of asthma. 1. ADHD (attention deficit hyperactivity disorder) 2. Post-viral cough syndrome No Known Allergies Medications: He has a current medication list which includes the following prescription(s): albuterol, c vs melatonin, minocycline, and concerta. Past Medical History He has a past [...] that he does not use illicit drugs. Review of Systems Pertinent items are noted in HPI. Objective: BP 118/60 | Pulse 84 | Temp(Src) 37.1 C (98.8 F) (Temporal) | Resp 20 | Ht 1.778 m (5' 10") | Wt 100.472 kg (221 lb 8 oz) | BMI 31.78 kg/m2 General Appearance: Alert, cooperative, no distress, appears stated age, unkempt, unwashed in dirty clothing Head: Normocephalic, without obvious abnormality, atraumatic Lungs: Clear to auscultation bilaterally, respirations unlabored Heart: Regular rate and rhythm, S1, S2 normal, no murmur, rub or gallop No results found for this or any previous visit. Assessment and Plans: Jr was seen today for cough/ADHD. Diagnoses and associated orders for this visit: Adhd (attention deficit hyperactivity disorder)-reviewed that it is his choice as to whethe r or not he wants to use the Concerta. He may need to consider using the Concerta if he bec omes employed in a more detail oriented job. I also reviewed it is important for him to eat a healthy diet drink lots of fluid and particularly to exercise on a regular basis. He'll also need to develop coping mechanisms to deal with the attention deficit disorder such as a reminder notes or alarms on his watch to help him remember specific events that he must not forget. I've also recommended that he establish routines for important matters. Post-viral cough syndrome-resolved. documented in this e ncounter Plan of Treatment Not on filedocumented as of this encounter Visit Diagnoses + + | Diagnosis | + + | ADHD (attention deficit hyperactivity disorder) - Primary Attention deficit disorder | | with hyperactivity | + + | Post-viral cough syndrome Cough | + + documented in this encounter
--- OUTSIDE RECORDS SUMMARY | ~2020-02-22 | XMS | Encounter Summary ---
Demographics + + + | Address | [address] | | | [place] [address] | + + + | Home Phone | | + + + | Preferred Language | Unknown | + + + | Marital Status | Single | + + + | Jehovah'S Witness Affiliation | Unknown | + + + | Race | Unknown | + + + | Ethnic Group | Unknown | + + + Author + + + | Author | [facility] | | | and [place] | + + + | Organization | [facility] | | | and [place] | + + + | Address | Unknown | + + + | Phone | Unavailable | + + + Support + + + + + | Name | Relationship | Address | Phone | + + + + + | Darryl Lugo | ECON | [address] | | | | | [place], [place] | | | | | [address] | | + + + + + | Earnestine Lugo | ECON | [address] | | | | | [place], [place] | | | | | [address] | | + + + + + Care Team Providers + +------+ + | Care Infectious Disease Physician Name | Role | Phone | + +------+ + | Cory Lagunas MD | PCP | | + +------+ + Reason for Visit + +--------+ + | Reason | Onset | Comments | | | Date | | + +--------+ + | Appointment | 12/17/ | | | | 2012 | | + +--------+ + Encounter Details +--------+ + + + + | Date | Type | Department | Care Team | Description | +--------+ + + + + | 12/17/ | Telephone | [facility] | Sam Woods, | Appointment | | 2012 | | SURGERY [address] | [address], | | | | | [place], [place] | [place] [address] [place] [place], | | | | | [address] | [place] [address] | | | | | [phone] | [phone] | | | | | | | [...] Telephone Encounter - Linda Ruvalcaba RN - 12/17/2012 11:25 AM PDTLeft message reminding Hector serra that surgery check in time is at 830am on December 18. documented in this encounter Plan of Treatment Not on filedocumented as of this encounter Visit Diagnoses Not on filedocumented in this encounter"
[~2020-02-22 11:25] MED LIST: DOXYCYCLINE HY100 MG PO
[2020-02-22] MEDS ORDERED: ZOFRAN4 MG PO (13:19)
[2020-02-22] MEDS ORDERED: PRILOSEC OTC20 MG PO (13:19)
== END 2020-02-22 13:46 | disposition home or self-care (01) ==
LOC: ED 11:25
DX: K27.9 Peptic ulcer, site unspecified, unspecified as acute or chronic, without hemorrhage or perforation (principal)
CPT/HCPCS: 80053; 81001; 83690; 85025; 96374; 99284-25; J2405; J7030

== ENCOUNTER 2025-01-23 16:08 | Observation (INO) | payer OTHER ==
[~2025-01-23] VITALS: Ht 180.3 cm; Wt 92.6 kg
[~2025-01-23 16:08] MED LIST changes: +PRILOSEC OTC20 MG PO; +ZOFRAN4 MG PO
[2025-01-23] MEDS ORDERED: AMOX TR-K CLV1 EAC1 PO (16:40)
[2025-01-23] MEDS ORDERED: ACETAMINOPHEN 500 MG TAB PO ONE (17:30)
[2025-01-23] MEDS ORDERED: SODIUM CHLORIDE 0.9% 1,000 ML IV PRN (18:30)
[2025-01-23 18:38] LABS: BASOPHILS 0.3 % (0.2-1.2); EOSINOPHILS 0.3 % (0.8-7.0); HEMOGLOBIN 12.3 g/dL (13.7-17.5); LYMPHOCYTES 15.8 % (21.8-53.1); MCH 27.9 PG (25.7-32.2); MCHC 33.2 g/dL (32.3-36.5); MCV 83.9 fL (79.0-92.2); MONOCYTES 13.2 % (5.3-12.2); NEUTROPHILS 70.3 % (34.0-67.9); PLATELET COUNT 206 K/uL (163-337); RBC 4.41 M/uL (4.63-6.08)
[2025-01-23 18:39] LABS: CORONAVIRUS COVID-19 AG NEGATIVE (NEGATIVE); INFLUENZA A AG NEGATIVE (NEGATIVE); INFLUENZA B AG NEGATIVE (NEGATIVE)
[2025-01-23 18:54] LABS: ALBUMIN 3.6 g/dL (3.4-5.0); ALBUMIN/GLOBULIN RATIO 0.86 (1.1-2.4); ANION GAP 12.7 (7-21); BILIRUBIN, TOTAL 0.3 mg/dL (0.2-1.0); BUN/CREATININE RATIO 14.28 (6.0-28.6); CALCIUM 8.7 mg/dL (8.5-10.1); CREATININE, SERUM 1.05 mg/dL (0.70-1.30); POTASSIUM 3.7 mmol/L (3.5-5.1); PROTEIN, TOTAL 7.8 g/dL (6.4-8.2)
[2025-01-23 18:56] LABS: LACTIC ACID, BLOOD 0.9 mmol/L (0.4-2.0)
[2025-01-23] MEDS ORDERED: CEFTRIAXONE SODIUM 1 GM in SODIUM CHLORIDE 0.9% 100 ML IV ONE ×2 (19:00→21:30)
[2025-01-23] MEDS ORDERED: AZITHROMYCIN 250 MG TAB PO ONE (19:00)
[2025-01-23 19:18] LABS: BILIRUBIN, URINE NEGATIVE (negative); BLOOD/HGB, URINE NEGATIVE (Negative); KETONE, URINE NEGATIVE (Negative); LEUK ESTERASE, URINE NEGATIVE (negative); NITRITE, URINE NEGATIVE (negative)
[2025-01-23 19:24] LABS: CRYSTALS, URINE NONE SEEN (0-1+); EPITHELIAL CELLS, URINE NONE SEEN /lpf (0-1+); RED BLOOD CELLS, URINE 0-1 /hpf (0-5); WHITE BLOOD CELLS, URINE 0-1 /HPF (0-5)
[2025-01-23 19:25] LABS: BACTERIA, URINE NONE SEEN /hpf (negative); CASTS, URINE NONE SEEN \\lpf; COLLECTION TYPE, URINE CLEAN CATCH; REFLEX CULTURE, URINE No (No)
[2025-01-23] MEDS ORDERED: ACETAMINOPHEN 325 MG TAB PO PRN (21:15)
[2025-01-23] MEDS ORDERED: ondansetron HCL 4 MG/2 ML VIAL IV PRN (21:15)
[2025-01-23] MEDS ORDERED: MORPHINE SULFATE 4 MG/ML VIAL IV PRN (21:15)
[2025-01-23] MEDS ORDERED: SODIUM CHLORIDE 0.9% 1,000 ML IV ONE (21:30)
--- NOTE | 2025-01-23 21:49 | NUR ---
REPORT RECEIVED FROM METHODS AND PROCEDURES ANALYSTLILIAM PHILLIPS. pt TO BE TRANSPORTED BY SCHOOL ADJUSTMENT COUNSELOR LILIAM.
[2025-01-23 22:03] VITALS: BP 146/75
--- NOTE | 2025-01-23 22:20 | NUR ---
pt ARRIVES TO MS FLOOR VIA STRETCHER, INDEPENDENT TO RESTROOM FOR VOID AND BACK TO BED. ASSESSMENT COMPLETE. SPO2 100% ON RA. ORIENTATION TO ROOM PROVIDED, CALL LIGHT AND PERSONAL SUPPLIES IN REACH. FLORA IN ROOM. RN JOSE COMPLETING ADMISSION HISTORY.
[2025-01-23 23:32] VITALS: BP 146/75
--- NOTE | 2025-01-24 00:10 | NUR ---
CHECKED ON pt. IVF BOLUS COMPLETE. RESTING IN BED ON LEFT SIDE WITH EYES CLOSED, BREATHING EQUAL AND UNLABORED.
[2025-01-24 01:18] VITALS: BP 135/70
--- NOTE | 2025-01-24 01:29 | NUR ---
CALL LIGHT ANSWERED. URINAL EMPTIED. pt REQUESTS TEMPERATURE CHECKED 102.6, ROOM TEMPERATURE LOWERED, COOL CLOTH PROVIDED, BLANKETS REMOVED EXCEPT SHEET. pt STATES FEELS MUCH BETTER. PRN TYLENOL ADMINISTERED. CALL LIGHT AND PERSONAL SUPPLIES IN REACH. ICE WATER REFILLED. IV SL WNL.
--- NOTE | 2025-01-24 02:48 | NUR ---
ROUNDED ON pt. RESTING IN BED WITH EYES CLOSED. BREATHING UNLABORED. NO DISTRESS NOTED.
--- NOTE | 2025-01-24 04:45 | NUR ---
CHECKED ON Pt. RESTING IN BED WITH EYES CLOSED. BREATHING UNLABORED. NO DISTRESS NOTED.
[2025-01-24 05:21] LABS: BASOPHILS 0.4 % (0.2-1.2); EOSINOPHILS 1.1 % (0.8-7.0); HEMATOCRIT 34.3 % (40.1-51.0); HEMOGLOBIN 11.4 g/dL (13.7-17.5); LYMPHOCYTES 23.7 % (21.8-53.1); MCH 28.4 PG (25.7-32.2); MCHC 33.2 g/dL (32.3-36.5); MCV 85.3 fL (79.0-92.2); MONOCYTES 18.9 % (5.3-12.2); NEUTROPHILS 55.8 % (34.0-67.9); PLATELET COUNT 188 K/uL (163-337); RBC 4.02 M/uL (4.63-6.08)
[2025-01-24 05:38] LABS: ALBUMIN 3.1 g/dL (3.4-5.0); ALBUMIN/GLOBULIN RATIO 0.82 (1.1-2.4); ANION GAP 13.2 (7-21); BILIRUBIN, TOTAL 0.2 mg/dL (0.2-1.0); BUN/CREATININE RATIO 11.86 (6.0-28.6); CALCIUM 8.3 mg/dL (8.5-10.1); CREATININE, SERUM 1.18 mg/dL (0.70-1.30); POTASSIUM 4.2 mmol/L (3.5-5.1); PROTEIN, TOTAL 6.9 g/dL (6.4-8.2)
[2025-01-24 05:59] VITALS: BP 128/68
--- NOTE | 2025-01-24 06:18 | NUR ---
IN ROOM FOR VS, pt AWAKENS TO VOICE, VSS. ASSESSMENT COMPLETE, LUNG SOUNDS CLEAR THROUGHOUT ALL LOBES. pt WITH DRY, NON-PRODUCTIVE COUGH. WRAPPED IV SITE, pt UP TO SHOWER INDEPENDENTLY. LINENS CHANGED. NEW GOWN PROVIDED.
[2025-01-24 06:25] VITALS: BP 128/68
[2025-01-24] MEDS ORDERED: AZITHROMYCIN 500 MG in DEXTROSE 5% 250 ML IV SCH (09:00)
[2025-01-24] MEDS ORDERED: POLYETHYLENE GLYCOL 3350 1 PACKET PO SCH (09:00)
[2025-01-24] MEDS ORDERED: SENNOSIDES/DOCUSATE 1 EA TAB PO SCH (09:00)
[2025-01-24] MEDS ORDERED: CEFTRIAXONE SODIUM 2 GM in SODIUM CHLORIDE 0.9% 100 ML IV SCH (09:00)
[2025-01-24 09:21] VITALS: BP 128/79
[2025-01-24] MEDS ORDERED: BENZONATATE100 MG PO (09:24)
[2025-01-24] MEDS ORDERED: LEVOFLOXACIN750 MG PO (09:26)
[2025-01-24] MEDS ORDERED: ACETAMINOPHEN 325 MG TAB PO PRN (09:30)
[2025-01-24] MEDS ORDERED: ondansetron HCL 4 MG/2 ML VIAL IV PRN (09:30)
[2025-01-24] MEDS ORDERED: BENZONATATE 100 MG CAP PO ONE (09:30)
[2025-01-24 10:00] VITALS: BP 128/79
[2025-01-24] MEDS ORDERED: PHARMACY RENAL DOSE ADJUSTMENT 1 DOSE MISC PO SCH (12:00)
[2025-01-24] MEDS ORDERED: CEFTRIAXONE SODIUM 1 GM in SODIUM CHLORIDE 0.9% 100 ML IV SCH (21:00)
[2025-01-24] MEDS ORDERED: AZITHROMYCIN 250 MG TAB PO SCH (21:00)
[2025-01-25] MEDS ORDERED: ENOXAPARIN SODIUM 40 MG/0.4 ML SYR SUB-Q SCH (09:00)
== END 2025-01-24 10:40 | disposition home or self-care (01) ==
LOC: ED 16:08 → MS 16:09
PROVIDERS: Emergency Medicine; Family Medicine; ADMIT Student in an Organized Health Care Education/Training Program; ATTEND Student in an Organized Health Care Education/Training Program
DX: J18.9 Pneumonia, unspecified organism (principal); Z79.899 Other long term (current) drug therapy
CPT/HCPCS: 36415; 71045; 71260; 74177; 80053; 81001; 83605; 83735; 85025; 87040; 96376; 99285-25; A9270; G0378; J0696; J7030; Q9967